=== PATIENT | male | born 1970 | race Caucasian/White ===

== ENCOUNTER → 2018-10-15 | Day surgery (SDC) | payer BC ==
[~2018-10-15] MED LIST: Lactated Ringers 1,000 ML IV SCH; Propofol 200 MG/20 ML SDV IV ONE
--- NOTE | 2018-10-18 09:52 | OR ---
DATE OF OPERATION: 10/15/2018 PREOPERATIVE DIAGNOSIS: HEMATOCHEZIA. POSTOPERATIVE DIAGNOSIS: HEMATOCHEZIA. SURGEON: Hector Saenz MD PROCEDURE: DIAGNOSTIC COLONOSCOPY WITH SNARE POLYPECTOMY X1. ANESTHESIA: MAC via EMBEDDED LINUX ENGINEER. COMPLICATIONS: None. SPECIMEN: Tubular adenoma, splenic flexure. FINDINGS: 1. Full-length colonoscopy. 2. Small tubular adenoma, splenic flexure, approximately 0.5 cm. 3. Perianal hemorrhoid disease. RECOMMENDATIONS: Followup colonoscopy in 5 years, routine cares for hemorrhoids. INDICATIONS: The patient presented with occasional hematochezia. We elected to proceed with diagnostic colonoscopy. DESCRIPTION OF PROCEDURE: The patient was prepped and draped, placed in the left lateral decubitus position. A lubricated Olympus colonoscope was inserted and with relative ease advanced to the cecum. Direct visualization of the ileocecal valve and appendiceal orifice was accomplished. The bowel prep was fine. Upon withdrawal; cecum, ascending, and transverse colon appeared completely unremarkable. Right around the splenic flexure, the patient had a small tubular adenoma, tucked up into a haustral fold. We were able to remove it with a snare without any difficulty. Suctioned into polyp trap number one. The rest of the descending colon was unremarkable. Throughout the sigmoid area, I could find no signs of any polyps, mass, ulceration, or bleeding sites. No vascular abnormalities or signs of colitis. No signs of diverticula. The rectal vault was benign. Retroflexion confirmed a lot of perianal vasculature that actually was a little friable. No obvious fissure seen. Air was suctioned from the colon and the scope was removed without complication. CARLOTA/EVE /[id number]
== END ==
LOC: CC.SDS 09:20
PROVIDERS: ATTEND Family Medicine
DX: K63.5 Polyp of colon (principal); K64.4 Residual hemorrhoidal skin tags; K21.9 Gastro-esophageal reflux disease without esophagitis; I10 Essential (primary) hypertension; E78.00 Pure hypercholesterolemia, unspecified; E03.9 Hypothyroidism, unspecified; G47.33 Obstructive sleep apnea (adult) (pediatric); M67.449 Ganglion, unspecified hand; E66.9 Obesity, unspecified; Z68.41 Body mass index [BMI] 40.0-44.9, adult; Z88.8 Allergy status to other drugs, medicaments and biological substances; Z90.5 Acquired absence of kidney; Z79.899 Other long term (current) drug therapy
CPT/HCPCS: 45385; J2704; J7120

== ENCOUNTER 2020-11-28 16:09 | Emergency (ER) | payer OTHER, BC ==
[2020-11-28 16:15] VITALS: BP 149/105; PULSE 89
[2020-11-28] MEDS: Diphtheria,Pertussis(Acell),Tetanus Vaccine 0.5 ML Syringe IM ONE (16:26)
[2020-11-28] MEDS: Lidocaine 1% with EPINEPHrine 1:100,000 20 ML MDV ONE (16:26)
[2020-11-28] MEDS: Lidocaine 1% with EPINEPHrine 1:100,000 20 ML MDV INJECT ONE (16:26)
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
== END 2020-11-28 16:46 | disposition home or self-care (01) ==
LOC: CC.ED 16:09
DX: S01.01XA Laceration without foreign body of scalp, initial encounter (principal); E78.00 Pure hypercholesterolemia, unspecified; I10 Essential (primary) hypertension; K21.9 Gastro-esophageal reflux disease without esophagitis; E03.9 Hypothyroidism, unspecified; Z79.899 Other long term (current) drug therapy; Z23 Encounter for immunization; Z88.8 Allergy status to other drugs, medicaments and biological substances; W25.XXXA Contact with sharp glass, initial encounter
CPT/HCPCS: 12002; 90471; 90715; 99282-25

== ENCOUNTER 2023-11-27 10:16 | Day surgery (SDC) | payer BC ==
[2023-11-27] MEDS: Lactated Ringers 1,000 ML IV SCH (10:30)
[2023-11-27] MEDS ORDERED: Ketamine 200 MG/20 ML MDV ONE (10:36)
[2023-11-27] MEDS ORDERED: fentaNYL 50 MCG/ML SDV ONE (10:36)
[2023-11-27] MEDS ORDERED: Midazolam 1 MG/ML 2 ML SDV ONE (10:36)
[2023-11-27] MEDS ORDERED: Propofol 200 MG/20 ML SDV ONE (10:36)
[2023-11-27] MEDS ORDERED: Flumazenil 0.1 MG/ML 10 ML MDV ONE (10:36)
== END 2023-11-27 12:00 | disposition home or self-care (01) ==
LOC: CC.SDS 10:16
PROVIDERS: ATTEND Family Medicine
DX: Z12.11 Encounter for screening for malignant neoplasm of colon (principal); D12.2 Benign neoplasm of ascending colon; D12.8 Benign neoplasm of rectum; I10 Essential (primary) hypertension; E78.00 Pure hypercholesterolemia, unspecified; E03.9 Hypothyroidism, unspecified; Z98.890 Other specified postprocedural states; Z79.890 Hormone replacement therapy; Z79.899 Other long term (current) drug therapy; Z86.010 Personal history of colon polyps
CPT/HCPCS: 00811; J2250; J2704; J3010; J3490; J7120